=== PATIENT | male | born 1995 | race Caucasian/White ===

== ENCOUNTER 2018-01-01 11:51 | Day surgery (SDC) | payer OTHER ==
[~2018-01-01 11:51] MED LIST: CEFAZOLIN 1 GM INJ; DEXAMETHASONE 4 MG/ML 1 ML INJ; METOCLOPRAMIDE 10 MG INJ; ONDANSETRON 4 MG INJ
[2018-01-01] MEDS ORDERED: FENTAnyl 50 MCG/ML VIAL (17:36)
[2018-01-01] MEDS ORDERED: MIDAZOLAM 1 MG/ML 2 ML INJ (17:37)
[2018-01-01] MEDS ORDERED: PROPOFOL 20 ML (17:56)
[2018-01-01] MEDS ORDERED: LIDOCAINE 2% (SDV) 5 ML INJ (17:57)
[2018-01-01] MEDS ORDERED: BUPIVACAINE 0.5% (SDV) 30 ML INJ (18:07)
[2018-01-01] MEDS: BUPIVACAINE 0.5% (MPF) 30 ML INJ EPI (18:23)
[2018-01-01] MEDS ORDERED: ONDANSETRON 4 MG INJ IV (19:00)
[2018-01-01] MEDS ORDERED: HYDROmorphONE 1 MG/5 ML IV SYRINGE IV ×2 (19:00)
[2018-01-01] MEDS ORDERED: KETOROLAC 30 MG INJ IV (19:00)
[2018-01-01] MEDS ORDERED: FENTAnyl 50 MCG/ML VIAL IV ×2 (19:00)
[2018-01-01] MEDS ORDERED: DIPHENHYDRAMINE 50 MG INJ IV (19:00)
[2018-01-01] MEDS ORDERED: MEPERIDINE 25 MG INJ IV (19:00)
== END 2018-01-01 20:06 | disposition home or self-care (01) ==
LOC: SDS 11:51
DX: D48.1 Neoplasm of uncertain behavior of connective and other soft tissue (principal)
CPT/HCPCS: 26113; 88307